=== PATIENT | female | born 1985 | race Caucasian/White ===

== ENCOUNTER 2017-04-07 05:03 | Inpatient (IN) | payer OTHER ==
[~2017-04-07] VITALS: Ht 170.2 cm; Wt 55.8 kg
[2017-04-07] VITALS (10 sets, daily range): BP systolic 102–133; BP diastolic 62–86
[2017-04-07] MEDS ORDERED: LORazepam 2 MG/ML VIAL IV ONE ×6 (05:15→22:00)
[2017-04-07] MEDS ORDERED: LORazepam 2 MG/ML VIAL ONE (05:16)
[2017-04-07 05:32] LABS: BASO % 1 % (0-3); EOS % 1 % (0-3); HEMATOCRIT 42.7 % (36.0-47.0); HEMOGLOBIN 14.7 g/dL (12.0-15.5); LYMPH # 2.3 x10^3/uL (1.0-4.8); LYMPH % 28 % (24-48); MEAN CORPUSCULAR HEMOGLOBIN 31 pg (25-35); MEAN CORPUSCULAR HGB CONC 34 g/dL (31-37); MEAN CORPUSCULAR VOLUME 90 fL (79-100); MONO # 0.5 x10^3/uL (0.0-1.1); MONO % 6 % (0-9); NEUT # 5.3 x10^3uL (1.8-7.7); NEUT % 65 % (31-73); PLATELET COUNT 318 x10^3/uL (140-400); RED BLOOD COUNT 4.76 x10^6/uL (3.50-5.40); RED CELL DISTRIBUTION WIDTH 13.2 % (11.5-14.5); WHITE BLOOD COUNT 8.1 x10^3/uL (4.0-11.0)
--- NOTE | 2017-04-07 05:41 | PHYS DOC ---
Adult General Chief Complaint Chief Complaint: OVERDOSE HPI HPI 5:15 AM: Patient is a 31-year-old female with a history significant for bipolar affective disorder, trichotillomania, methamphetamine abuse who presents to the ED today by EMS secondary to abnormal behavior after presumably using methamphetamine. History is currently being obtained only from EMS. Small amount history is obtained from the family however apparently they left the ER to a [facility] to get some food and they have promised to come right back. Further history is unobtainable at this time. The patient secondary to her condition. Patient although it is responding to her physical surroundings is not answering questions and is not following commands appropriately. Review of systems: Review of systems unobtainable at this time secondary to the patient's medical condition and drug use. Physical exam: Physical exam is difficult to assess secondary to patient being uncooperative, not communicative at this time. Constitutional: Well developed, well nourished appearing appears agitated and remains in bed with intentional tremors of her upper or lower extremities as well as her torso head and neck. HENT: Normocephalic, patchy areas of alopecia. Atraumatic, dry mucous membranes. Eyes: PERRLA, EOMI, conjunctiva normal, no discharge. Neck: Normal range of motion, no tenderness, supple, no stridor. Cardiovascular:Heart rate tachycardic and regular. Heart rate of approximately 1 :30. Lungs & Thorax: Bilateral breath sounds clear to auscultation Abdomen: Nondistended. Skin: Warm, dry, no erythema, no rash. Extremities:, no cyanosis, no clubbing, ROM intact, no edema. Neurologic: Alert and appears to be responding to her external environment. Patient is moving all extremities well. Patient is having intermittent episodes of tonic-clonic jerking that appear to be intentional and appear to withdraw and stop with slight painful stimuli. Her main. The neurological exam is difficult to assess at this time secondary to her medical condition and uncooperative and uncommunicative state. Psychologic: Agitated. ER physical exam is significant for not being communicative and not following commands appropriately. Patient is laying in bed moaning indiscernible sounds. Patient is moving all her extremities well. Patient is afebrile. Patient has no Kernig's or Brudzinski sign. Patient has no nuchal rigidity. Patient does not present with signs or symptoms at this time that are highly consistent with meningitis. There is no evidence of head trauma. There is no evidence of airway compromise. Patient has a normal gag reflex. 1. EKG reveals sinus tachycardia at a heart rate of [address]-T wave abnormalities. No evidence of ST elevation [place]. As interpreted by ER physician. Assessment and plan: 1. 31-year-old female who presents to the ER today with altered mental status presumed secondary to methamphetamine abuse. Patient has had labs drawn including a CBC, CMP, urine drug screen, alcohol level, Tylenol salicylate levels. Patient be given 2 mg of IV Ativan 2. After the first dose of IV Ativan the patient did have a significant improvement in her restlessness. Patient's test is negative at this time. Patient be given IV fluids/ normal saline and will be reassessed regular. Benadryl 25 mg IV was given to treat the possibility of a dystonic reaction. 5:54 AM: Reevaluation of patient shows patient has significant improvement in her mentation. Patient is actually able to converse with me at this time. Patient reports that she smoked meth earlier today in the back of her throat is only complaint that she has. Patient is denying any pain anywhere else at this time. Patient denies any IV drug use. Patient reports that she only smokes methamphetamine. Family is back at her bedside currently. Patient's CBC and CMP are back and all within normal limits. Patient's Tylenol also site levels are within normal limits. we have monitored the patient for improvement. I do not feel CT scan at this time is indicated as she is alert awake oriented to person place month and day. There is no evidence of any head trauma. His no evidence of airway compromise. Current Medications Current Medications Current Medications Medications (Trade) Dose Ordered Sig/Lisa Start Time Stop Time Status Last Admin Dose Admin Lorazepam (Ativan) 2 mg 1X ONCE 04/07/17 05:15 04/07/17 05:25 DC 04/07/17 05:17 2 MG Allergies Allergies Allergies Coded Allergies Type Severity Reaction Last Updated Verified No Known Drug Allergies 04/07/17 No EKG EKG [] Radiology/Procedures Radiology/Procedures [] Course & Med Decision Making Course & Med Decision Making Pertinent Labs and Imaging studies reviewed. (See chart for details) [] Dragon Disclaimer Dragon Disclaimer This electronic medical record was generated, in whole or in part, using a voice recognition dictation system. Departure Departure: Referrals: PCP,GHAZALA (PCP) Assessment/Plan Assessment/Plan This is a 31-year-old female who was signed out to me at 6 AM he would come in prior to me with symptomatology suggestive of methamphetamine abuse. Blood work unremarkable. Patient's symptoms improved remarkably with Ativan and Benadryl however she remains tachycardic in the 120s and is not back to her normal mentation. I discussed the case with Dr. Martell and obtain the patient a bed in our hospital for further IV fluids benzodiazepine and further evaluation workup and care. I have assessed this patient clinically and believe that their condition requires an admission to the hospital. After consulting the admitting physician about this case, they have asked that I admit this patient to their service as an inpatient based on the clinical presentation and my impression. HONORIO BRUCE MD Apr 07, 2017 05:41 ZENON ORTIZ MD Apr 07, 2017 07:33
[2017-04-07 05:44] LABS: ALBUMIN 4.4 g/dL (3.4-5.0); ALBUMIN/GLOBULIN RATIO 1.3 (1.0-1.7); CALCIUM 8.6 mg/dL (8.5-10.1); CREATININE 0.8 mg/dL (0.6-1.0); GFR 84.2; POTASSIUM 4.1 mmol/L (3.5-5.1); SALIC 2.9 mg/dL (2.8-20.0); TOTAL BILIRUBIN 0.7 mg/dL (0.2-1.0); TOTAL PROTEIN 7.7 g/dL (6.4-8.2)
[2017-04-07 05:45] LABS: ACETAMIN < 2.0 mcg/mL (10-30); ETHANOL < 10 mg/dL (0-10)
[2017-04-07] MEDS ORDERED: diphenhydrAMINE 50 MG/ML VIAL ONE (05:46)
[2017-04-07] MEDS ORDERED: ONDANSETRON PF 4 MG/2 ML VIAL. ONE (05:47)
[2017-04-07] MEDS ORDERED: diphenhydrAMINE 50 MG/ML VIAL IV ONE (06:00)
[2017-04-07] MEDS ORDERED: IV NORMAL SALINE 1,000ML 1,000 ML IV ONE ×2 (06:00→07:30)
[2017-04-07] MEDS ORDERED: ONDANSETRON PF 4 MG/2 ML VIAL. IV ONE (06:00)
--- NOTE | 2017-04-07 07:25 | RAD ---
EXAM: Chest one view. HISTORY: Altered mental status. COMPARISON: None. FINDINGS: A frontal view of the chest is obtained. There are no confluent infiltrates. There is no pneumothorax or pleural effusion. The heart is not enlarged. IMPRESSION: 1. No confluent infiltrates.
[2017-04-07] MEDS ORDERED: ONDANSETRON PF 4 MG/2 ML VIAL. IV PRN (08:15)
--- NOTE | 2017-04-07 09:02 | EKG ---
[address] [address] Test Date: 2017-04-07 Test Time: 05:40:38 Pat Name: VERÓNICA HASSAN Department: Room: 109 A Gender: F Fish Icer: OTTO : 1985 Requested By: NORBERT ONEILL Order Number: [id number] Reading MD: Measurements Intervals Onset Rate: 122 P: 79 NC: 128 QRS: 84 QRSD: 78 T: 63 QT: 302 QTc: 431 Interpretive Statements SINUS TACHYCARDIA NO SPECIFIC ECG ABNORMALITIES RI6.01 Unconfirmed report No previous ECG available for comparison
[2017-04-07] MEDS: diphenhydrAMINE 50 MG/ML VIAL IVP PRN ×2 (09:27→20:24)
[2017-04-07 09:57] LABS: AMPHETAMINE/METHAMPHETAMINE POS (NEG); BARBITURATES NEG (NEG); BENZODIAZEPINES POS (NEG); CANNABINOIDS NEG (NEG); COCAINE NEG (NEG); METHADONE NEG (NEG); OPIATES NEG (NEG); PHENCYCLIDINE NEG (NEG)
[2017-04-07 10:21] LABS: BILIRUBIN,URINE NEG (NEG); CLARITY,URINE HAZY; COLOR,URINE YELLOW; GLUCOSE,URINE NEG (NEG); NITRITE,URINE NEG (NEG); UROBILINOGEN,URINE 0.2 mg/dL (0.2 mg/dL)
[2017-04-07 10:22] LABS: BACTERIA,URINE FEW /HPF (0-FEW); HYALINE CASTS, URINE OCC /HPF; RBC,URINE >40 /HPF (0-2); SQUAMOUS EPITHELIAL CELL,UR FEW /LPF
[2017-04-07] MEDS: LORazepam 2 MG/ML VIAL IV PRN ×2 (12:13→19:32)
--- NOTE | 2017-04-07 16:28 | HP ---
ADMIT DATE: 04/07/2017 HISTORY OF PRESENT ILLNESS: The patient is a 31-year-old female patient who was in fact brought to the Emergency Department by emergency medical service secondary to abnormal behavior after presumably using methamphetamine. Apparently, most of the history was obtained from EMS and some from the family who left the Emergency Room. The patient is very lethargic and apparently has been very restless, agitated. In the Emergency Room, she was given Ativan and again she has had also received Ativan when she arrived to the hospital floor. PAST MEDICAL HISTORY: Significant for bipolar affective disorder, trichotillomania as well as methamphetamine abuse. PAST SURGICAL HISTORY: Unremarkable. ALLERGIES: She has no known drug allergies. MEDICATIONS: She is currently on no medication. FAMILY HISTORY: Unobtainable. SOCIAL HISTORY: She apparently and both she and her are on disability and both use drugs. They have 6 children together. I do not have any information about her alcohol or smoking. REVIEW OF SYSTEMS: Unobtainable. PHYSICAL EXAMINATION: GENERAL: On examining her, she was resting slightly propped up in bed, sleeping comfortably in no apparent distress. She was pale. No jaundice, cyanosis, or thyromegaly. No jugular venous distention. No limb edema. VITAL SIGNS: Her heart rate was 98, blood pressure was 127/83, temperature was 97.9, respiratory rate 20, and oxygen saturation was 96%. HEENT: Normocephalic, atraumatic. NECK: Supple. HEART: Showed normal first and second heart sounds with no gallop, rub or murmur. CHEST: Clear to auscultation. No crepitation or rhonchi. ABDOMEN: Distended, soft, nontender. No guarding or rigidity. No organomegaly with hernial orifice intact. Bowel sounds normal. NEUROLOGIC: She was sleepy, but arousable. She is able to move all extremities without difficulty. She apparently has intermittent episodes of tonic-clonic jerking that appear to be intentional and opiate withdrawal and stop with slight painful stimuli. Neurologically, it is difficult to assess as she is very lethargic and agitated at time. LABORATORY DATA: While in the Emergency Room, she has had lab work done, which showed a white cell count of 8100, hemoglobin 14.7, hematocrit 42.7, MCV 90 and platelet count of 318,000 with normal manual differential. Her serum sodium was 140, potassium 4.1, chloride 105, bicarbonate 21, anion gap of 14, BUN 11, creatinine 0.8, estimated GFR was 84 mL per minute. Her glucose was 97, calcium was 8.6. Total bilirubin, AST, ALT, alkaline phosphatase were normal. Total protein 7.7, albumin 4.4. Her urinalysis showed the urine was yellow, hazy with a pH of 5.5, specific gravity of 1.030. There was trace of protein, negative for glucose, large amount of ketones, large amount of blood; negative for nitrite, leukocyte esterase, and there were more than ____ rbc's, 1-4 wbc's, very few bacteria and urine toxicology screen was positive for amphetamine, methamphetamine, benzodiazepine; was negative for cocaine, cannabinoids, alcohol, methadone, opiates as well as barbiturates and phencyclidine. Her chest x-ray showed that she has no confluent infiltrate. There is no pneumothorax or pleural effusion. The heart size is normal. IMPRESSION: In summary, this is a 31-year-old female patient who was admitted with amphetamine abuse. Her symptoms improved after she received Ativan and Benadryl; however, she remains tachycardic in the 120s. PLAN: To admit her to the hospital and continue the IV fluid, continue with the benzodiazepine and review her labs tomorrow to make sure that there is no deterioration and once stabilized, she can be discharged home. NORBERT ONEILL MD DR: NORMA/tiffany JOB#: [id number] / [id number]
[2017-04-07] MEDS: POTASSIUM CL 40MEQ D5-0.45NACL 1,000 ML IV SCH (16:34)
[2017-04-07] MEDS: MORPHINE SULFATE 2 MG/ML DISP.SYRIN. IV PRN (21:14)
[2017-04-08] VITALS (11 sets, daily range): BP systolic 90–145; BP diastolic 57–82
[2017-04-08 05:26] LABS: BASO % 1 % (0-3); EOS # 0.2 x10^3/uL (0.0-0.7); EOS % 3 % (0-3); LYMPH # 2.4 x10^3/uL (1.0-4.8); LYMPH % 43 % (24-48); MEAN CORPUSCULAR HEMOGLOBIN 31 pg (25-35); MEAN CORPUSCULAR HGB CONC 34 g/dL (31-37); MEAN CORPUSCULAR VOLUME 91 fL (79-100); MONO # 0.5 x10^3/uL (0.0-1.1); MONO % 9 % (0-9); NEUT # 2.4 x10^3uL (1.8-7.7); NEUT % 44 % (31-73); PLATELET COUNT 213 x10^3/uL (140-400); RED BLOOD COUNT 3.87 x10^6/uL (3.50-5.40); WHITE BLOOD COUNT 5.4 x10^3/uL (4.0-11.0)
[2017-04-08] MEDS: MORPHINE SULFATE 2 MG/ML DISP.SYRIN. IV PRN (05:26)
[2017-04-08 05:34] LABS: ALBUMIN 3.1 g/dL (3.4-5.0); ALBUMIN/GLOBULIN RATIO 1.3 (1.0-1.7); CALCIUM 7.7 mg/dL (8.5-10.1); CREATININE 0.6 mg/dL (0.6-1.0); GFR 117.4; POTASSIUM 4.1 mmol/L (3.5-5.1); TOTAL BILIRUBIN 0.5 mg/dL (0.2-1.0); TOTAL PROTEIN 5.5 g/dL (6.4-8.2)
[2017-04-08] MEDS: LORazepam 2 MG/ML VIAL IV PRN (06:15)
[2017-04-08] MEDS: diphenhydrAMINE 50 MG/ML VIAL IVP PRN (06:15)
[2017-04-08] MEDS: IBUPROFEN 600 MG TABLET. PO PRN ×3 (09:03→21:26)
[2017-04-08] MEDS: POTASSIUM CL 40MEQ D5-0.45NACL 1,000 ML IV SCH ×2 (09:06→19:10)
--- NOTE | 2017-04-08 10:40 | PN ---
DATE: 04/08/2017 SUBJECTIVE: The patient is sitting slightly propped up in bed, no apparent distress. She is awake, alert, responding appropriately. She has what seems to be ____. DICTATION ENDS HERE. NORBERT ONEILL MD DR: NORMA/tiffany JOB#: [id number] / [id number]
--- NOTE | 2017-04-08 11:09 | PN ---
DATE: 04/08/2017 SUBJECTIVE: The patient is resting slightly propped up in bed, in no apparent distress. She is definitely more awake, alert, responding appropriately. She was admitted with altered mental status secondary to amphetamine abuse. Her toxicology screen was positive for methamphetamine, amphetamine, benzodiazepine, and yesterday last night she developed twitching and abnormal movement, difficult to describe. This seems to be tonic-clonic jerking that appears to be intentional. According to nursing staff, they stopped whenever they apply any painful stimuli. There was no postictal state. The patient did not bite her tongue or was not incontinent of bowel or bladder. We did treat her with Ativan and started her on Keppra. We did consult Dr. Herrera and the patient was transferred to ICU for close monitoring. When I saw her this morning, she is definitely more awake, alert, responding appropriately, although she has hoarseness of voice and was complaining of pain in her neck. She actually managed to eat her breakfast this morning according to nursing staff, and other than pain in her neck, she denied any other complaint. PHYSICAL EXAMINATION: GENERAL: When I examined her, she looked well and was clearly in no apparent respiratory distress, pale, but no jaundice, cyanosis, or thyromegaly. No jugular venous distention. No limb edema. VITAL SIGNS: Her heart rate was 92, blood pressure was 119/70, temperature was 97.8, respiratory rate 23, and oxygen saturation was 99%. The rest of clinical examination is unremarkable, has not really changed. Her intake over the last 24 hours was 1600, output was 1500. LABORATORY DATA: Her lab work this morning showed a white cell count 5400, hemoglobin 12, hematocrit 35, MCV 91, and platelet count of 213,000. Her serum sodium was 140, potassium 4.1, chloride 110, bicarbonate 22, anion gap of 8, BUN 11, creatinine 0.6, estimated GFR was 117 mL per minute. Her glucose was 99, calcium was 7.7. Total bilirubin, AST, ALT, alkaline phosphatase were normal. CK was 121. Total protein was 5.5, albumin 3.1. ASSESSMENT: This is a 31-year-old female patient who was admitted with altered mental status. Her toxic screen was positive for methamphetamine and benzodiazepine. The patient developed tonic-clonic jerking without any biting her tongue or being incontinent of bladder or bowel. There was no postictal state. The patient was transferred to the ICU for close observation. We did give her Ativan and started her also on Keppra. We did consult Dr. Herrera for evaluation and see whether these are real seizures. She does not have any CT scan of the head done and we will obviously await evaluation by Dr. Herrera. NORBERT ONEILL MD DR: NORMA/tiffany JOB#: [id number] / [id number]
--- NOTE | 2017-04-08 12:17 | RAD ---
Head CT without contrast History:new onset of seizure Technique: Noncontrast CT imaging was acquired of the head. [facility] Compliance Statement: One or more of the following individualized dose reduction techniques were utilized for this examination: 1. Automated exposure control 2. Adjustment of the mA and/or kV according to patient size 3. Use of iterative reconstruction technique Comparison: None Findings: The ventricles, sulci, and cisterns are within normal limits in size and configuration. There is no significant mass-effect, midline shift, or abnormal extra-axial fluid collection. There is no evidence of acute parenchymal or extraaxial hemorrhage. The visualized paranasal sinuses and mastoid air cells are mostly aerated, some patchy ethmoid air cell mucosal thickening bilaterally. There are jovany bullosa bilaterally. No significant osseous abnormality is identified. Impression: There is no evidence of an acute intracranial abnormality.
--- NOTE | 2017-04-08 15:23 | CONS ---
DATE OF CONSULTATION: NEUROLOGIC CONSULTATION REFERRING PHYSICIAN: Dr. Obando. REASON FOR CONSULTATION: Seizure-like activities. HISTORY OF PRESENT ILLNESS: This is a 31-year-old female who was admitted through the Emergency Room after she presented with chief complaints of abnormal behavior, restlessness, and agitations. In the ER, the patient was found to have abnormal urine drug screen consistent with methamphetamine abuse. The reason for neuro consult was requested because the patient had a brief spell described as generalized tonic-clonic seizure lasted 2-3 minutes without postictal confusion, tongue biting, or bowel or bladder incontinence, however, the patient did not recall any event. The patient has not had any seizures in the past. In the Emergency Room, the patient was given Ativan for agitation. The patient was started on Keppra intravenously at 500 mg b.i.d. No recurrent seizure-like activity has been reported since. PAST MEDICAL HISTORY: Significant for bipolar disorders, long history of methamphetamine abuse. PAST SURGICAL HISTORY: Consistent with . CURRENT HOME MEDICATIONS: None. ALLERGIES: No known drug allergies. FAMILY HISTORY: Noncontributory. SOCIAL HISTORY: The patient is . She has 6 children. She denies alcohol drinking. REVIEW OF SYSTEMS: 10-point review of system was performed. PHYSICAL EXAMINATION: GENERAL: Well developed, well nourished white female, in no acute distress. She weighs 123.5 pounds. The height is 67 inches. VITAL SIGNS: Blood pressure ____, respiratory rate 16, pulse rate is 86, temperature 97.8, oxygen saturation 98% on room air. HEENT: Normocephalic, atraumatic, otherwise unremarkable. NECK: Supple. Negative for carotid bruit, lymphadenopathy, or thyromegaly. LUNGS: Clear to A and P. CARDIOVASCULAR: Regular rate and rhythm. Normal S1, S2. There is no S3, S4, or murmurs. ABDOMEN: Soft. Bowel sounds positive. EXTREMITIES: Negative for cyanosis, clubbing or edema. NEUROLOGIC: Mental status: The patient is alert and oriented to time. The speech is fluent. There is no language dysfunction. Memory, judgment, and abstract thinking are fair. The patient denies any hallucination or delusion. Cranial Nerves: Visual danielson are full. The pupils are reactive to light and accommodation. Extraocular movements are intact. There is no nystagmus. There is no facial motor or sensory deficit. Hearing is intact bilaterally. The palate elevated symmetrically. Sternocleidomastoid muscles are powerful bilaterally. The patient shrugs her shoulders symmetrically and protrudes her tongue in the midline without fasciculation or atrophy. Motor examination: No focal muscle bulk was seen. The tone is normal. The strength is 5/5 throughout. Sensory examination revealed normal pinprick, light touch, vibratory and position senses. Deep tendon reflexes were symmetric and active without pathology responses. Gait: Not tested. LABORATORY DATA: CBC revealed white blood cells of 5.4 thousand, hemoglobin 12, hematocrit 35, platelet count 213,000. Chemistry revealed sodium of 140, potassium 4.1, chloride 110, CO2 22, BUN 11, creatinine 0.6, glucose 89, calcium is 7.7. Urinalysis is negative. Urine drug screen is positive for methamphetamine. IMPRESSION: 1. Status post seizure described as generalized tonic-clonic seizure, probably drug induced, however, other etiology should be ruled out. 2. Long history of methamphetamine abuse. 3. Bipolar disorders. RECOMMENDATIONS: 1. To obtain head CT scan. 2. Continue with current management initiated by Dr. Obando. 3. We will arrange for an EEG to be done on outpatient basis, then decide whether we need to discontinue the current anticonvulsant. M Any BROWN MD DR: MARY CARMEN/tiffany JOB#: [id number] / [id number]
[2017-04-08] MEDS: levETIRAcetam 500 MG TABLET PO SCH (21:26)
[2017-04-09 05:23] LABS: CALCIUM 8.4 mg/dL (8.5-10.1); CREATININE 0.6 mg/dL (0.6-1.0); GFR 117.4; MAGNESIUM 1.7 mg/dL (1.8-2.4)
[2017-04-09 06:29] VITALS: BP 111/64
[2017-04-09] MEDS: POTASSIUM CL 40MEQ D5-0.45NACL 1,000 ML IV SCH (08:30)
[2017-04-09] MEDS: levETIRAcetam 500 MG TABLET PO SCH (08:51)
[2017-04-09] MEDS: IBUPROFEN 600 MG TABLET. PO PRN (08:51)
[2017-04-09] MEDS ORDERED: LEVE500T56 PO (10:49)
--- NOTE | 2017-04-09 11:29 | DS ---
DATE OF DISCHARGE: 04/09/2017 HOSPITAL COURSE: The patient is resting slightly propped up in bed, in no apparent distress, awake, alert. Questioning her, denied any complaint. Nursing staff did not voice any concerns that she had an uneventful night. She has had no further episode of seizures. She was seen by Dr. Herrera and recommended to continue with Keppra and arranged for her to have an outpatient EEG to decide whether she needs to continue on Keppra or not. Her CT scan was unremarkable. The ventricles sulci and cisterns are within normal limits in size and configuration. There is no significant mass effect, midline shift or abnormal extraaxial fluid collection. There is no evidence of acute parenchymal or extraaxial hemorrhage. The visualized paranasal sinuses and mastoid air cells are mostly aerated, some patchy ethmoid air cell, mucosal thickening bilaterally. There are jovany bullosa bilaterally. No significant osseous abnormalities identified. I saw her this morning, she looked pale, no jaundice, cyanosis, or thyromegaly. No jugular venous distension. No lower limb edema. Her heart rate was 89, blood pressure was 111/64, temperature was 98.2, respiratory rate 20, and oxygen saturation was 94%. Rest of clinical examination is unremarkable, has not really changed. The patient is able to ambulate without assistance or assistive devices. LABORATORY DATA: This morning showed a serum sodium 141, potassium 4, chloride 109, bicarbonate 24, anion gap of 8, BUN 11, creatinine was 0.6, estimated GFR was 117 mL per minute. Her glucose was 97, calcium was 8.4, magnesium was 1.7. Total bilirubin, AST, ALT, alkaline phosphatase were normal. CK was only 121. Total protein was 5.5, albumin 3.1. White cell count was 5400, hemoglobin 12, hematocrit 35, MCV 91, and platelet count 213,000. DISCHARGE MEDICATIONS: The patient was discharged home on Keppra 500 mg twice a day and arrangement has been made for her to be seen, followed by Dr. Herrera as an outpatient for an EEG to see whether she needs to continue on Keppra, how this is just a drug-induced seizure. FINAL DISCHARGE DIAGNOSES: Long history of amphetamine abuse, bipolar disorder, tonic-clonic seizures, trichotillomania. The patient is almost bald because she is pulling on all her hair. NORBERT ONEILL MD DR: Del JOB#: [id number] / [id number]
== END 2017-04-09 11:55 | disposition home or self-care (01) | DRG 101 ==
LOC: ER 05:03 → 1 SOUTH 07:49 → ICU 21:03 → 1 SOUTH 04-08 13:51
PROVIDERS: ADMIT Internal Medicine; ATTEND Internal Medicine
DX: G40.89 Other seizures (principal); F15.10 Other stimulant abuse, uncomplicated; F31.9 Bipolar disorder, unspecified; F63.3 Trichotillomania
CPT/HCPCS: 36415; 70450; 71010; 80048; 80053; 80307; 81001; 81025; 82550; 83735; 85025; 87641; 93005; 96361; 96374; 96375; 96376; G0480; J1200; J1953; J2060; J2270; J2405; J7042; 99285-25; G0479; J7030

== ENCOUNTER → 2017-11-08 | Outpatient (CLI) | payer OTHER ==
[~2017-11-08] MED LIST: LEVE500T56 PO
[2017-11-08 10:06] LABS: BASO % 1 % (0-3); EOS # 0.3 x10^3/uL (0.0-0.7); EOS % 5 % (0-3); HEMOGLOBIN 15.2 g/dL (12.0-15.5); LYMPH # 2.3 x10^3/uL (1.0-4.8); LYMPH % 44 % (24-48); MEAN CORPUSCULAR HEMOGLOBIN 30 pg (25-35); MEAN CORPUSCULAR HGB CONC 34 g/dL (31-37); MEAN CORPUSCULAR VOLUME 90 fL (79-100); MONO # 0.3 x10^3/uL (0.0-1.1); MONO % 7 % (0-9); NEUT # 2.2 x10^3uL (1.8-7.7); NEUT % 43 % (31-73); PLATELET COUNT 264 x10^3/uL (140-400); RED BLOOD COUNT 5.01 x10^6/uL (3.50-5.40); RED CELL DISTRIBUTION WIDTH 13.7 % (11.5-14.5); WHITE BLOOD COUNT 5.2 x10^3/uL (4.0-11.0)
[2017-11-08 10:13] LABS: ALBUMIN 3.3 g/dL (3.4-5.0); CALCIUM 8.3 mg/dL (8.5-10.1); CREATININE 0.7 mg/dL (0.6-1.0); GFR 98.3; TOTAL BILIRUBIN 0.3 mg/dL (0.2-1.0); TOTAL PROTEIN 6.5 g/dL (6.4-8.2)
[2017-11-08 14:03] LABS: FREE T4 0.59 ng/dL (0.76-1.46); THYROID STIM HORMONE (TSH) 2.712 uIU/mL (0.358-3.740)
[2017-11-08 21:08] LABS: PROLACTIN 40.3 ng/mL (4.8-23.3)
== END | disposition home or self-care (01) ==
LOC: LAB 08:13
PROVIDERS: ATTEND Clinical Nurse Specialist Psychiatric/Mental Health, Adult
DX: Z51.81 Encounter for therapeutic drug level monitoring (principal); Z79.899 Other long term (current) drug therapy
CPT/HCPCS: 36415; 80053; 80061; 84146; 84439; 84443; 84480; 85025

== ENCOUNTER 2018-03-18 11:54 | Emergency (ER) | payer OTHER ==
[~2018-03-18] VITALS: Ht 170.2 cm; Wt 72.0 kg
[2018-03-18] MEDS ORDERED: IV NORMAL SALINE 1,000ML 1,000 ML IV ONE (12:30)
[2018-03-18] MEDS ORDERED: ONDANSETRON PF 4 MG/2 ML VIAL. IV ONE (12:30)
--- NOTE | 2018-03-18 12:35 | PHYS DOC ---
Past History Past Medical History: Bipolar, High Cholesterol Past Surgical History: No Surgical History Alcohol Use: None Drug Use: None Adult General Chief Complaint Chief Complaint: NAUSEA/VOMITING/DIARRHEA HPI HPI Patient is a 32 year old female who presents with complaining of nausea and vomiting and diarrhea. Patient complaining of several episodes of nausea and vomiting for the last 2 days without any episodes of vomiting today. Patient states she had 2 episodes of diarrhea yesterday. Patient complaining of upper abdominal pain during episodes of vomiting. Patient denies fever and chills, urinary symptoms, . Patient had sick contacts at work. Review of Systems Review of Systems Constitutional: Denies fever or chills [] Eyes: Denies change in visual acuity, redness, or eye pain [] HENT: Denies nasal congestion or sore throat [] Respiratory: Denies cough or shortness of breath [] Cardiovascular: No additional information not addressed in HPI [] GI: Reports abdominal pain, nausea, vomiting, diarrhea [] : Denies dysuria or hematuria [] Musculoskeletal: Denies back pain or joint pain [] Integument: Denies rash or skin lesions [] Neurologic: Denies headache, focal weakness or sensory changes [] Endocrine: Denies polyuria or polydipsia [] All other systems were reviewed and found to be within normal limits, except as documented in this note. Allergies Allergies Allergies Coded Allergies Type Severity Reaction Last Updated Verified No Known Drug Allergies 03/18/18 No Physical Exam Physical Exam Constitutional: Well nourished, mild distress, non-toxic appearance. [] HENT: Normocephalic, atraumatic, oropharynx dry, no oral exudates, nose normal. [] Eyes: PERRLA, EOMI, conjunctiva normal, no discharge. [] Neck: Normal range of motion, no tenderness, supple, no stridor. [] Cardiovascular: Tachycardia, no murmur [] Lungs & Thorax: Bilateral breath sounds clear to auscultation [] Abdomen: Bowel sounds normal, soft, no tenderness, no masses, no pulsatile masses. [] Skin: Warm, dry, no erythema, no rash. [] Back: No tenderness, no CVA tenderness. [] Extremities: No tenderness, no cyanosis, no clubbing, ROM intact, no edema. [] Neurologic: Alert and oriented X 3, normal motor function, normal sensory function, no focal deficits noted. [] Psychologic: Affect anxious, judgement normal, mood normal. [] EKG EKG [] Radiology/Procedures Radiology/Procedures [] Course & Med Decision Making Course & Med Decision Making Pertinent Labs reviewed. (See chart for details) Evaluation of patient in ER showed 32-year-old female patient with complaining of nausea and vomiting and diarrhea without any episodes of vomiting or diarrhea today. Patient mainly was in ER for work excuse but was tachycardic and looked under influence of drug. Had positive methamphetamine her UDS. Patient treated with IV fluid and Zofran and tolerated oral intake. Dragon Disclaimer Dragon Disclaimer This electronic medical record was generated, in whole or in part, using a voice recognition dictation system. Departure Departure: Impression: Primary Impression: Acute gastroenteritis Additional Impressions: Methamphetamine abuse Tachycardia Tobacco abuse Tobacco abuse counseling Disposition: HOME, SELF-CARE (at 1336) Condition: IMPROVED Referrals: PCP,UNKNOWN (PCP) Patient Instructions: Methamphetamine Abuse, Complications, Smoking Cessation, Tips For Success, Viral Gastroenteritis Additional Instructions: Drink plenty of liquids Follow-up with your primary care physician in 3-5 days Return to ER if not getting better Scripts Ondansetron (ZOFRAN ODT) 4 Mg Tab.rapdis 1 TAB SL Q8HRS PRN for nausea and vomiting, #15 TAB Prov: TIM CASTRO MD 03/18/18 Problem Qualifiers TIM CASTRO MD Mar 18, 2018 12:35
[2018-03-18 12:41] LABS: BASO % 1 % (0-3); EOS % 1 % (0-3); HEMATOCRIT 50.7 % (36.0-47.0); HEMOGLOBIN 17.9 g/dL (12.0-15.5); LYMPH # 1.8 x10^3/uL (1.0-4.8); LYMPH % 23 % (24-48); MEAN CORPUSCULAR HEMOGLOBIN 31 pg (25-35); MEAN CORPUSCULAR HGB CONC 35 g/dL (31-37); MEAN CORPUSCULAR VOLUME 87 fL (79-100); MONO # 0.6 x10^3/uL (0.0-1.1); MONO % 7 % (0-9); NEUT # 5.5 x10^3uL (1.8-7.7); NEUT % 69 % (31-73); PLATELET COUNT 342 x10^3/uL (140-400); RED BLOOD COUNT 5.84 x10^6/uL (3.50-5.40); RED CELL DISTRIBUTION WIDTH 13.2 % (11.5-14.5)
[2018-03-18 12:48] LABS: BARBITURATES NEG (NEG); BENZODIAZEPINES NEG (NEG); CANNABINOIDS NEG (NEG); COCAINE NEG (NEG); METHADONE NEG (NEG); OPIATES NEG (NEG); PHENCYCLIDINE NEG (NEG)
[2018-03-18 12:49] LABS: AMPHETAMINE/METHAMPHETAMINE POS (NEG); BACTERIA,URINE FEW /HPF (0-FEW); BILIRUBIN,URINE NEG (NEG); CLARITY,URINE HAZY; COLOR,URINE AMBER; GLUCOSE,URINE NEG (NEG); NITRITE,URINE NEG (NEG); RBC,URINE OCC /HPF (0-2); SQUAMOUS EPITHELIAL CELL,UR MANY /LPF; UROBILINOGEN,URINE 1 mg/dL (0.2 mg/dL); WBC,URINE OCC /HPF (0-4)
[2018-03-18 12:50] LABS: U PREG PATIENT NEGATIVE (NEG)
[2018-03-18 12:59] LABS: ALBUMIN 4.2 g/dL (3.4-5.0); ALBUMIN/GLOBULIN RATIO 1.1 (1.0-1.7); CALCIUM 9.2 mg/dL (8.5-10.1); CREATININE 0.9 mg/dL (0.6-1.0); POTASSIUM 3.6 mmol/L (3.5-5.1); TOTAL BILIRUBIN 0.5 mg/dL (0.2-1.0); TOTAL PROTEIN 8.1 g/dL (6.4-8.2)
[2018-03-18] MEDS ORDERED: ONDA4TAB10 SL (13:38)
[2018-03-18 13:47] VITALS: BP 138/93
== END 2018-03-18 13:49 | disposition home or self-care (01) ==
LOC: ER 11:54
DX: K52.89 Other specified noninfective gastroenteritis and colitis (principal); F15.10 Other stimulant abuse, uncomplicated; R00.0 Tachycardia, unspecified; E78.00 Pure hypercholesterolemia, unspecified; F31.9 Bipolar disorder, unspecified; Z72.0 Tobacco use; Z71.6 Tobacco abuse counseling
CPT/HCPCS: 36415; 80053; 80307; 81001; 81025; 83690; 85025; 96361; 96374; 99284; J2405; G0479; J7030

== ENCOUNTER 2020-06-11 15:31 | Emergency (ER) | payer OTHER ==
[~2020-06-11] VITALS: Ht 170.2 cm; Wt 74.0 kg
[~2020-06-11 15:31] MED LIST changes: +ONDA4TAB10 SL
[2020-06-11 15:54] VITALS: BP 119/89
[2020-06-11] MEDS ORDERED: LIDOCAINE 1% Multi-Dose 20 ML VIAL. ONE (16:22)
[2020-06-11] MEDS ORDERED: LIDOCAINE 2%/EPI 1:100,000 20 ML VIAL. ONE (16:22)
[2020-06-11] MEDS ORDERED: SULF1TAB24 PO (16:46)
--- NOTE | 2020-06-11 16:47 | PHYS DOC ---
Past History Past Medical History: No Pertinent History (CHERELLE NGO APRN) Past Surgical History: (CHERELLE NGO APRN) Alcohol Use: None Drug Use: None (CHERELLE NGO APRN) General Adult EDM: Chief Complaint: SKIN PROBLEM HPI: HPI: Patient is a 34-year-old female who presents with abscess to left lower leg. Patient states that she started having swelling and redness about a week ago. Patient is able to ambulate on her own. Patient denies fever. Denies any medical history. (CHERELLE NGO APRN) Review of Systems: Review of Systems: Constitutional: Denies fever or chills Eyes: Denies change in visual acuity HENT: Denies nasal congestion or sore throat Respiratory: Denies cough or shortness of breath Cardiovascular: Denies chest pain or edema GI: Denies abdominal pain, nausea, vomiting, bloody stools or diarrhea : Denies dysuria Musculoskeletal: Denies back pain or joint pain Integument: Swelling and redness to left lower leg, mucopurulent discharge Neurologic: Denies headache, focal weakness or sensory changes Endocrine: Denies polyuria or polydipsia Lymphatic: Denies swollen glands Psychiatric: Denies depression or anxiety (CHERELLE NGO APRN) Allergies: Allergies: Allergies Coded Allergies Type Severity Reaction Last Updated Verified No Known Drug Allergies 03/18/18 No (CHERELLE NGO APRN) Physical Exam: PE: Constitutional: Well developed, well nourished, no acute distress, non-toxic appearance. [] HENT: Normocephalic, atraumatic, bilateral external ears normal, oropharynx moist, no oral exudates, nose normal. [] Eyes: PERRLA, EOMI, conjunctiva normal, no discharge. [] Neck: Normal range of motion, no tenderness, supple, no stridor. [] Cardiovascular:Heart rate regular rhythm, no murmur [] Lungs & Thorax: Bilateral breath sounds clear to auscultation [] Abdomen: Bowel sounds normal, soft, no tenderness, no masses, no pulsatile masses. [] Skin: Warm, redness, swelling left lower leg Back: No tenderness, no CVA tenderness. [] Extremities: Tenderness to left lower leg, swelling, ROM intact, Neurologic: Alert and oriented X 3, normal motor function, normal sensory function, no focal deficits noted. [] Psychologic: Affect normal, judgement normal, mood normal. [] (CHERELLE NGO APRN) Current Patient Data: Vital Signs: Vital Signs Date Time Temp Pulse Resp B/P (MAP) Pulse Ox O2 Delivery O2 Flow Rate FiO2 06/11/20 15:54 97.9 94 16 119/89 (99) 99 Room Air (CHERELLE NGO APRN) EKG: EKG: [] (CHEERLLE NGO APRN) Radiology/Procedures: Radiology/Procedures: [] (CHERELLE NGO APRN) Heart Score: Risk Factors: Risk Factors: DM, Current or recent (<one month) smoker, HTN, HLP, family history of CAD, obesity. Risk Scores: Score 0 - 3: 2.5% MACE over next 6 weeks - Discharge Home Score 4 - 6: 20.3% MACE over next 6 weeks - Admit for Clinical Observation Score 7 - 10: 72.7% MACE over next 6 weeks - Early Invasive Strategies (CHERELLE NGO APRN) Course & Med Decision Making: Course & Med Decision Making Pertinent Labs and Imaging studies reviewed. (See chart for details) []Patient is a 34-year-old female who presents with abscess to left lower leg. Patient states that she started having swelling and redness about a week ago. Patient is able to ambulate on her own. Patient denies fever. Denies any medical history. I&D to abscess.Abscess packed, patient to follow up in 2 days for wound check with PCP. Patient given Bactrim DS BID x5 days for infection. (CHERELLE NGO APRN) Reginaldo Disclaimer: Reginaldo Disclaimer: This electronic medical record was generated, in whole or in part, using a voice recognition dictation system. (CHERELLE NGO APRN) Departure Departure: Impression: Primary Impression: Abscess Disposition: 01 DC HOME SELF CARE/HOMELESS Condition: GOOD Referrals: PCP,NO (PCP) Patient Instructions: Abscess, [id number] Additional Instructions: You are seen in the emergency room today for left lower leg abscess. Keep the area clean and dry. Take ibuprofen or Tylenol at home for pain. Follow up with your PCP in 2 days for wound recheck. I have called in antibiotics to your preferred pharmacy. Make sure you finish the antibiotics as prescribed to prevent infection. If you have worsening symptoms or concern, please return to the ED. EMERGENCY DEPARTMENT GENERAL DISCHARGE INSTRUCTIONS Thank you for coming to [facility] (ED) today and trusting us with you care. We trust that you had a positivie experience in our Emergency Department. If you wish to speak to the department management, you may call the director at [phone]. YOUR FOLLOW UP INSTRUCTIONS ARE FOLLOWS: 1. Do you have a private Doctor? If you do not have a private doctor, please ask for a resource list of physicians or clinics that may be able to assist you with follow up care. 2. The Emergency Physician has interpreted your x-rays. The X-Ray specialist will also review them. If there is a change in the findings, you will be notified in 48 hours when at all possible. 3. A lab test or culture has been done, your results will be reviewed and you will be notified if you need a change in treatment. ADDITIONAL INSTRUCTIONS AND INFORMATION: 1. Your care today has been supervised by a physician who is specially trained in emergency care. Many problems require more than one evaluation for a complete diagnosis and treatment. We recommend that you schedule your follow up appointment as recommended to ensure complete treatment of you illness or injury. If you are unable to obtain follow up care and continue to have a problem, or if your condition worsens, we recommend that you return to the ED. 2. We are not able to safely determine your condition over the phone nor are we able to give sound medical advice over the phone. For these safety reasons, if you call for medical advice we will ask you to come to the ED for further evaluation. 3. If you have any questions regarding these discharge instructions please call the ED at [phone]. SAFETY INFORMATION: In the interest of safety, wellness, and injury prevention; we encourage you to wear your sealbelt, if you smoke; quite smoking, and we encourage family to use a protective helmet for bicycling and other sporting events that present an increased risk for head injury. IF YOUR SYMPTOMS WORSEN OR NEW SYMPTOMS DEVELOP, OR YOU HAVE CONCERNS ABOUT YOUR CONDITION; OR IF YOUR CONDITION WORSENS WHILE YOU ARE WAITING FOR YOUR FOLLOW UP APPOINTMENT; EITHER CONTACT YOUR PRIMARY CARE DOCTOR, THE PHYSICIAN WHOSE NAME AND NUMBER YOU WERE GIVEN, OR RETURN TO THE ED IMMEDIATELY. Scripts Sulfamethoxazole/Trimethoprim (BACTRIM DS TABLET) 1 Each Tablet 1 EACH PO BID for infection for 5 Days, #10 TAB Prov: CHERELLE NGO APRN 06/11/20 Attending Signature Attending Signature I have reviewed the PA/APIGEE DEVELOPER's note and plan of care. I was available for consultation as needed during the patient's visit in the emergency department. I agree with the clinical impression, plan, and disposition. (JOSESITO YADAV DO) CHERELLE NGO APRN Jun 11, 2020 16:47 JOSESITO YADAV DO Jun 12, 2020 16:30
[2020-06-11] MEDS ORDERED: HYDROcodone/APAP 5/325MG 1 TAB TABLET PO ONE (17:00)
== END 2020-06-11 17:15 | disposition home or self-care (01) ==
LOC: ER 15:31
DX: L02.416 Cutaneous abscess of left lower limb (principal)
CPT/HCPCS: 99283

== ENCOUNTER 2020-07-19 12:17 | Emergency (ER) | payer OTHER ==
[~2020-07-19] VITALS: Ht 170.2 cm; Wt 72.7 kg
[~2020-07-19 12:17] MED LIST changes: +SULF1TAB24 PO
[2020-07-19 12:22] VITALS: BP 150/102
[2020-07-19] MEDS ORDERED: LIDOCAINE 1%/EPI 1:100,000 10 ML VIAL. INJ ONE (12:45)
[2020-07-19] MEDS ORDERED: HYDROcodone/APAP 5/325MG 1 TAB TABLET PO ONE (13:30)
[2020-07-19] MEDS ORDERED: SMZ/TMP 800/160MG TABLET. PO ONE (13:30)
[2020-07-19] MEDS ORDERED: HYDR-2155 PO (13:33)
[2020-07-19] MEDS ORDERED: SULF1TAB24 PO (13:33)
--- NOTE | 2020-07-19 13:34 | PHYS DOC ---
Past History Past Medical History: No Pertinent History Past Surgical History: Alcohol Use: None Drug Use: None General Adult EDM: Chief Complaint: GROIN PAIN HPI: HPI: Patient is a 34-year-old female coming in for abscess to her left groin. Patient states about a month and half ago she had an abscess drained on her left lower extremity. Denies any other prior history of abscesses. Denies any medical conditions. Denies any shaving in the area or trauma. No systemic complaints. Review of Systems: Review of Systems: All other systems within normal limits except for as noted in the HPI Current Medications: Current Meds: Current Medications Medications (Trade) Dose Ordered Sig/Lisa Start Time Stop Time Status Last Admin Dose Admin Acetaminophen/ Hydrocodone Bitart (Lortab 5/325) 1 tab 1X ONCE 07/19/20 13:30 07/19/20 13:31 UNV Lidocaine/ Epinephrine (Xylocaine 1%-Epi 1:100,000) 10 ml 1X ONCE 07/19/20 12:45 07/19/20 12:56 DC 07/19/20 12:45 10 ML Allergies: Allergies: Allergies Coded Allergies Type Severity Reaction Last Updated Verified No Known Drug Allergies 03/18/18 No Physical Exam: PE: Constitutional: Well developed, well nourished, no acute distress, non-toxic appearance. [] HENT: Normocephalic, atraumatic, bilateral external ears normal, nose normal. [] Eyes: PERRLA, conjunctiva normal, no discharge. [] Neck: No rigidity, supple, no stridor. [] Cardiovascular: Regular rate and rhythm, brisk cap refill [] Lungs & Thorax: Non labored symmetric respirations, no tachypnea or respiratory distress [] Abdomen: Soft, nondistended. Skin: Warm, dry, no erythema, no rash. [] Back: Unremarkable Extremities: No deformities, range of motion grossly intact, no lower extremity edema [] Neurologic: Alert and oriented X 3, no focal deficits noted. [] Psychologic: Affect normal, judgement normal, mood normal. [] Current Patient Data: Vital Signs: Vital Signs Date Time Temp Pulse Resp B/P (MAP) Pulse Ox O2 Delivery O2 Flow Rate FiO2 07/19/20 12:22 97.9 89 20 150/102 (118) 100 EKG: EKG: [] Radiology/Procedures: Radiology/Procedures: Abscess and drainage procedure: Area anesthetized with 1% lidocaine with epi, approximately 1 cc was injected. Scalpel was used to make's incision, moderate amount of purulent drainage expressed. Wound dressed with gauze and Band-Aid Heart Score: C/O Chest Pain: No Risk Factors: Risk Factors: DM, Current or recent (<one month) smoker, HTN, HLP, family history of CAD, obesity. Risk Scores: Score 0 - 3: 2.5% MACE over next 6 weeks - Discharge Home Score 4 - 6: 20.3% MACE over next 6 weeks - Admit for Clinical Observation Score 7 - 10: 72.7% MACE over next 6 weeks - Early Invasive Strategies Course & Med Decision Making: Course & Med Decision Making Pertinent Labs and Imaging studies reviewed. (See chart for details) [] Dragon Disclaimer: Dragon Disclaimer: This electronic medical record was generated, in whole or in part, using a voice recognition dictation system. Departure Departure: Impression: Primary Impression: Abscess of groin, left Disposition: 01 DC HOME SELF CARE/HOMELESS Condition: STABLE Referrals: DHIRAJ BAXTER (PCP) Patient Instructions: Abscess, Care After Additional Instructions: Follow-up with your primary care provider in 3 days for wound recheck Scripts Hydrocodone Bit/Acetaminophen (HYDROCODONE-APAP 5-325 ) 1 Each Tablet 1 TAB PO PRN Q6HRS PRN for PAIN for 2 Days, #8 TAB 0 Refills Caution: this medication can make you drowsy. Do not drive or operate heavy machinery when using this medication. Prov: MICHOACANO KUMARI MD 07/19/20 Sulfamethoxazole/Trimethoprim (BACTRIM DS TABLET) 1 Each Tablet 1 TAB PO BID for antibiotic for 10 Days, #20 TAB 0 Refills Prov: MICHOACANO KUMARI MD 07/19/20 MICHOACANO KUMARI MD Jul 19, 2020 13:33
== END 2020-07-19 13:38 | disposition home or self-care (01) ==
LOC: ER 12:17
DX: L02.214 Cutaneous abscess of groin (principal); Z98.890 Other specified postprocedural states
CPT/HCPCS: 10060; 99283

== ENCOUNTER 2021-08-19 12:46 | Emergency (ER) | payer OTHER ==
[~2021-08-19] VITALS: Ht 170.2 cm; Wt 67.0 kg
[~2021-08-19 12:46] MED LIST changes: +HYDR-2155 PO
[2021-08-19 12:58] VITALS: BP 136/97
[2021-08-19] MEDS ORDERED: LIDOCAINE 1%/EPI 1:100,000 20 ML VIAL. IJ ONE (13:15)
[2021-08-19] MEDS ORDERED: HYDROcodone/APAP 5/325MG 1 TAB TABLET PO ONE (13:15)
--- NOTE | 2021-08-19 13:23 | PHYS DOC ---
Past History Past Medical History: No Pertinent History Past Surgical History: Alcohol Use: None Drug Use: None General Adult HPI: HPI: Patient is a 35-year-old female who presents to the emergency department today for an abscess to her right buttock that started 3 months ago. Patient reports it has increased in size and pain over the last 3 days. She rates her pain 10 out of 10. She reports taking ibuprofen this morning. She denies fevers, chills, nausea, vomiting. Review of Systems: Review of Systems: Constitutional: See HPI GI: See HPI Integument: See HPI Current Medications: Current Meds: Current Medications Medications (Trade) Dose Ordered Sig/Lisa Start Time Stop Time Status Last Admin Dose Admin Acetaminophen/ Hydrocodone Bitart (Lortab 5/325) 1 tab 1X ONCE 08/19/21 13:15 08/19/21 13:16 UNV Lidocaine/ Epinephrine (Xylocaine 1%-Epi 1:100,000) 20 ml 1X ONCE 08/19/21 13:15 08/19/21 13:16 UNV Allergies: Allergies: Allergies Coded Allergies Type Severity Reaction Last Updated Verified No Known Drug Allergies 03/18/18 No Physical Exam: PE: Constitutional: Well developed, well nourished, no acute distress, non-toxic appearance. [] HENT: Normocephalic, atraumatic, bilateral external ears normal, oropharynx moist, no oral exudates, nose normal. [] Eyes: PERRL, EOMI, conjunctiva normal, no discharge. [] Neck: Normal range of motion, no stridor Cardiovascular: Normal peripheral perfusion Lungs & Thorax: Normal work of breathing, no tachypnea Abdomen: Soft and flat Skin: Warm, dry, 2 cm area of swelling noted to right inner buttock with fluctuance consistent with an abscess Back: No tenderness, normal range of motion Extremities: No tenderness, no cyanosis, no clubbing, ROM intact, no edema. [] Neurologic: Alert and oriented X 3, normal motor function, normal sensory function, no focal deficits noted. [] Psychologic: Affect normal, judgement normal, mood normal. [] EKG: EKG: [] Radiology/Procedures: Radiology/Procedures: [] Heart Score: C/O Chest Pain: N/A Risk Factors: Risk Factors: DM, Current or recent (<one month) smoker, HTN, HLP, family history of CAD, obesity. Risk Scores: Score 0 - 3: 2.5% MACE over next 6 weeks - Discharge Home Score 4 - 6: 20.3% MACE over next 6 weeks - Admit for Clinical Observation Score 7 - 10: 72.7% MACE over next 6 weeks - Early Invasive Strategies Course & Med Decision Making: Course & Med Decision Making Pertinent Labs and Imaging studies reviewed. (See chart for details) [] Patient presents to the emergency department for an abscess to her right buttock that started 3 months ago. There is an area of fluctuance to her right inner buttock that will need to be drained. Area was cleansed in the emergency department with Betadine prep incision and drainage was performed. Patient tolerated procedure. A dressing was placed. Patient's tetanus was updated in the ER. She is given pain medication in the ER. Patient educated on wound care. Advised to take Tylenol and ibuprofen at home. I discussed with patient all findings and diagnostic testing as well as the need to follow-up with PCP for further evaluation and treatment or return to the ER if any new or worsening symptoms. Strict return precautions were also discussed at length. Patient voiced understanding and agreement with the plan. Patient is hemodynamically stable at the time of disposition. Dragon Disclaimer: Dragon Disclaimer: This electronic medical record was generated, in whole or in part, using a voice recognition dictation system. Incision and Drainage Indication: Abscess to right inner buttock Procedure: The patient was positioned appropriately and the skin over the incision site was then prepped local anesthesia was lidocaine with epi an incision was then made over the apex of the abscess and large amount of purulent material was expressed. Loculations were removed. The drainage cavity was then left to drain. The patients tetanus status updated The patient tolerated the procedure Complications: [None Departure Departure: Impression: Primary Impression: Abscess Disposition: 01 HOME / SELF CARE / HOMELESS Condition: GOOD Referrals: HDIRAJ BAXTER (PCP) Patient Instructions: Abscess Additional Instructions: You were seen in the emergency department today for an abscess that was drained in the emergency department. You are being discharged home with an antibiotic please start and finish it completely. Please keep this area clean and dry and wash with mild soap and warm water. Please keep the dressing in place as this may continue to drain. Take Tylenol and ibuprofen for pain. Follow-up with ayedn welsh primary care provider in 2 days for wound recheck. Return to the emergency department if you develop worsening of your infection as evidenced by high fevers refractory to treatment, intractable nausea or vomiting, body aches/joint pain, increased redness, warmth, swelling or drainage from abscess site. Scripts Doxycycline Hyclate (DOXYCYCLINE HYCLATE) 100 Mg Tablet 1 TAB PO BID for abscess for 7 Days, #14 TAB 0 Refills Prov: CARLOTA VELA APRN 08/19/21 CARLOTA VELA APRN Aug 19, 2021 13:23
[2021-08-19] MEDS ORDERED: DIPHTH,PERTUSS(ACELL),TET TOX 0.5 ML DISP.SYRIN. VAX IM ONE (13:45)
[2021-08-19] MEDS ORDERED: DOXY100T PO (13:52)
== END 2021-08-19 14:35 | disposition home or self-care (01) ==
LOC: ER 12:46
DX: L02.31 Cutaneous abscess of buttock (principal)
CPT/HCPCS: 10060; 90471; 90715; 99283